=== PATIENT | female | born 1990 | race Caucasian/White ===

== ENCOUNTER 2018-10-26 10:19 | Outpatient (CLI) | payer MEDICAID | END 2018-10-26 12:25 | disposition home or self-care (01) | LOC: OBT 10:19 → L-D 10:20 → OBT 12:25 | DX: O36.63X0 Maternal care for excessive fetal growth, third trimester, not applicable or unspecified (principal); O41.93X0 Disorder of amniotic fluid and membranes, unspecified, third trimester, not applicable or unspecified; Z3A.35 35 weeks gestation of pregnancy | CPT/HCPCS: 76815; 76818 ==